=== PATIENT | female | born 1985 | race African-American/Black ===

== ENCOUNTER 2018-07-24 14:05 | Emergency (ER) | payer MEDICAID ==
[~2018-07-24] VITALS: Ht 172.7 cm; Wt 90.3 kg
[2018-07-24 14:09] VITALS: Ht 172.7 cm; Wt 90.3 kg
[2018-07-24 15:54] LABS: BASOPHIL % 0.8 % (0-2); PLATELET COUNT 200 x10^3mcL (130-400)
[2018-07-24 16:02] LABS: CALCIUM 8.5 mg/dL (8.5-10.1); CHLORIDE SERUM 103 mmol/L (98-107); CREATININE SERUM 0.7 mg/dL (0.6-1.0); GFR1 > 60 mL/min; GLUCOSE SERUM 70 mg/dL (74-106); RED CELL DISTRIBUTION WIDTH 14.7 % (11.5-14.5); SODIUM SERUM 138 mmol/L (136-145)
[2018-07-24 16:08] LABS: ALBUMIN 3.5 g/dL (3.4-5.0); ALKALINE PHOSPHATASE 38 U/L (46-116); ALT/SGPT 23 U/L (14-59); AST/SGOT 26 U/L (15-37); BILIRUBIN TOTAL 0.2 mg/dL (0.20-1.00); TOTAL PROTEIN, SERUM 7.5 g/dL (6.4-8.2)
[2018-07-24 18:08] VITALS: BP 147/86
== END 2018-07-24 18:08 | disposition home or self-care (01) ==
LOC: ED 14:05
PROVIDERS: Emergency Medicine
DX: R53.1 Weakness (principal); N80.9 Endometriosis, unspecified; E78.00 Pure hypercholesterolemia, unspecified; Z88.0 Allergy status to penicillin; Z88.1 Allergy status to other antibiotic agents; Z86.2 Personal history of diseases of the blood and blood-forming organs and certain disorders involving the immune mechanism
CPT/HCPCS: 36415

== ENCOUNTER 2018-08-23 11:40 | Emergency (ER) | payer MEDICAID ==
[~2018-08-23] VITALS: Ht 172.7 cm; Wt 90.3 kg
[2018-08-23 11:51] VITALS: Ht 172.7 cm; Wt 90.3 kg
[2018-08-23 15:46] VITALS: BP 122/74
== END 2018-08-23 15:46 | disposition home or self-care (01) ==
LOC: ED 11:40
DX: L76.34 Postprocedural seroma of skin and subcutaneous tissue following other procedure (principal); Z98.890 Other specified postprocedural states; Z88.0 Allergy status to penicillin; Z88.1 Allergy status to other antibiotic agents
CPT/HCPCS: J2001; Q0092